=== PATIENT | male | born 1980 | race Caucasian/White ===

== ENCOUNTER 2019-09-17 01:29 | Emergency (ER) | payer SELFPAY ==
[2019-09-17] MEDS ORDERED: HYDROcodone/Acetaminophen 5/325 mg Tablet ONE (02:34)
[2019-09-17 02:49] LABS: Bacteria/HPF None Seen HPF (None Seen); Bilirubin Negative (Negative); Blood, Urine Negative (Negative); Clarity Clear (Clear); Glucose, Urine (Dipstick) Normal (Negative); Leukocyte Negative Leu/uL (Negative); Nitrite Negative (Negative); Protein, Urine (Dipstick) 30 mg/dL (Neg-Trace); RBC/HPF 0-3 HPF (0-3); Squamous Epithelial 0-3 HPF (0-3); Urobilinogen 3 mg/dL (Less than 2); WBC/HPF 0-3 HPF (0-3)
--- NOTE | 2019-09-17 07:54 | ULT ---
PRELIMINARY REPORT/[facility]/EMERGENCY AFTER HOURS PROCEDURE: History: Right testicular pain, edema and redness 2 days. Scrotal ultrasound with color Doppler and spectral waveform analysis. Comparison: None. Findings: The right testicle measures 4.5 x 2.7 x 2.1 cm. Normal homogeneous echotexture without focal mass. Normal vascularity with arterial and venous waveforms. The right epididymis is unremarkable. The left testicle measures 4.1 x 3.0 x 2.2 cm. Normal homogeneous echotexture without focal mass. N ormal vascularity with arterial and venous waveforms. 4 mm epididymal head cyst. Small left hydroce le. Impression: 1. No evidence of torsion or epididymoorchitis. 2. Small left hydrocele. 3. 4 mm left epididymal head cyst or spermatocele. ELECTRONICALLY SIGNED BY: Fahad Feliz MD Sep 17, 2019 2:53:57 AM [employer] This report is intended for review by the ordering physician only, in accordance of law. If you recei ve this report in error, please call [facility] at [phone]. FINAL REPORT BILATERAL TESTICULAR ULTRASOUND WITH LAMAS SCALE AND COLOR FLOW AND SPECTRAL DOPPLER IMAGING: IMPRESSION: I agree with the preliminary report given by [facility]. POS: [facility]
== END 2019-09-17 03:18 | disposition home or self-care (01) ==
LOC: ERS 01:29
DX: N50.811 Right testicular pain (principal); F43.10 Post-traumatic stress disorder, unspecified; F41.9 Anxiety disorder, unspecified; F31.9 Bipolar disorder, unspecified; F17.210 Nicotine dependence, cigarettes, uncomplicated
CPT/HCPCS: 76870; 81003; 81015; 93976

== ENCOUNTER 2023-04-04 12:55 | Emergency (ER) | payer SELFPAY ==
[2023-04-04] MEDS ORDERED: Ketorolac Tromethamine 30 MG/ML VIAL ONE (13:24)
== END 2023-04-04 13:32 | disposition home or self-care (01) ==
LOC: ERS 12:55
DX: S16.1XXA Strain of muscle, fascia and tendon at neck level, initial encounter (principal); M25.512 Pain in left shoulder; F17.210 Nicotine dependence, cigarettes, uncomplicated; X58.XXXA Exposure to other specified factors, initial encounter
CPT/HCPCS: 96372; J1885

== ENCOUNTER 2023-05-06 15:03 | Emergency (ER) | payer OTHER, SELFPAY ==
[2023-05-06] MEDS ORDERED: Ketorolac Tromethamine 30 MG/ML VIAL ONE (18:00)
== END 2023-05-06 18:34 | disposition home or self-care (01) ==
LOC: ERS 15:03
DX: M25.512 Pain in left shoulder (principal); F17.210 Nicotine dependence, cigarettes, uncomplicated
CPT/HCPCS: 71046; 93005; 96372; J1885